=== PATIENT | female | born 1990 | race African-American/Black ===

== ENCOUNTER 2018-03-16 17:10 | Emergency (ER) | payer OTHER ==
[2018-03-16 17:23] VITALS: BP 102/80; PULSE 89; TEMP 98.5; BMI 32.5
--- NOTE | 2018-03-16 18:03 | PDOC ---
History of Present Illness <Jazmine Mcghee - Last Filed: 03/16/18 18:57> - History of Present Illness Initial Comments: 27yo F with no significant PMH complaining of eye pain x 8 days. Patient reports watery, erythematous eyes, initially worse on the right but now worse on the left. She describes a gritty sensation in her eyes, but denies double vision, fever, or chills. Patient reports being around her son and sister who presented with the same symptoms before hers occurred. Patient saw primary care provider last Wednesday and was given neomycin/polymyxin/dexamethasone eye drops which provided her no relief. She presents today with worsening symptoms. 03/16/18 17:59 <Mary Domínguez - Last Filed: 03/20/18 14:27> - General History Source: Patient <Shahriar Lee - Last Filed: 03/21/18 17:59> - General Chief Complaint: Eye Problem Stated Complaint: PINK EYE Time Seen by Provider: 03/16/18 17:12 Attending Attestation - HPI HPI: 03/16/18 18:23 The patient is a 27-year-old female with no reported past medical history presents to the emergency department with eye irritation. The patient presents with b/l eye discomfort for the past 8 days, initially presented to the R. eye, now slowly progressing to the L. eye The patient reports following up with PCP, who prescribe neomycin, reports being compliant with the medication, without relief. The patient reports associated symptoms of mild blurry vision and the sensation of somethings in the eye denies diplopia, fevers or chills. The patient reports sick contact with son and sister; they were diagnosed with conjunctivitis. Allergies: NKDA Social history: The patient denies the use of cigarettes. Denies the use of alcohol or recreational drugs. PCP: Syed Espinosa. (Attending medicine/Internal medicine, ) - Physicial Exam PE: 03/16/18 18:57 General: Awake, alert, fully oriented. In no acute distress. Head: Normocephalic, atraumatic. Eyes: eyes erythematous and injected b/l, PERRL, EOMI, sclera anicteric ENT: Moist mucous membranes. Oropharynx is clear. <Jazmine Mcghee - Last Filed: 03/16/18 18:57> - Resident Resident Name: Mary Domínguez - ED Attending Attestation I have performed the following: I have examined & evaluated the patient, The case was reviewed & discussed with the resident, I agree w/resident's findings & plan, Exceptions are as noted - Medical Decision Making The history and PE suggestive of viral conjunctivitis , much improved. At this point we suggested to stop the eye drops, to avoid contact with kids and women Follow up with ophtalmologist 03/21/18 17:54 <Shahriar Lee - Last Filed: 03/21/18 17:59> Past History <Jazmine Mcghee - Last Filed: 03/16/18 18:57> - Past Medical History COPD: No Thyroid Disease: No - Suicide/Smoking/Psychosocial Hx Smoking History: Never smoked Have you smoked in the past 12 months: No Information on smoking cessation initiated: No Hx Alcohol Use: No Drug/Substance Use Hx: No Substance Use Type: None <Mary Domínguez - Last Filed: 03/20/18 14:27> <Shahriar Lee - Last Filed: 03/21/18 17:59> - Past Medical History Allergies/Adverse Reactions: Allergies Allergy/AdvReac Type Severity Reaction Status Date / Time No Known Allergies Allergy Verified 03/16/18 17:11 Home Medications: Ambulatory Orders Neomycin/Polymyxin B/Dexametha [Wshgwr-Zfwrk-Upvayrs Eye Ointm] 2 drop OP BID Review of Systems - Review of Systems Comments:: Constitutional: no fever, no chills Cardiovascular: no chest pain Respiratory: no cough, no shortness of breath Gastrointestinal: no abdominal pain Genitourinary: no dysuria, no frequency Musculoskeletal: no myalgia, no arthralgia Skin: no rash, no itching Neurologic: no headache, no dizziness <Mary Domínguez - Last Filed: 03/20/18 14:27> *Physical Exam - Vital Signs Last Vital Signs Temp Pulse Resp BP Pulse Ox 98.5 F 89 20 102/80 100 03/16/18 17:10 03/16/18 17:10 03/16/18 17:10 03/16/18 17:10 03/16/18 17:10 <Jazmine Mcghee Last Filed: 03/16/18 18:57> - Vital Signs Last Vital Signs Temp Pulse Resp BP Pulse Ox 98.5 F 89 20 102/80 100 03/16/18 17:10 03/16/18 17:10 03/16/18 17:10 03/16/18 17:10 03/16/18 17:10 - Physical Exam Comments: General: Awake, alert, and fully oriented, in no acute distress Head: no signs of trauma Eyes: eyes erythematous and injected b/l, PERRL, EOMI, sclera anicteric ENT: moist mucus membranes, Neck: Normal ROM, supple, no lymphadenopathy, JVD, or masses Lungs: Lungs clear, Normal breath sounds Cardio: Regular rhythm, S1 and S2 present Abdomen: Soft, nontender Extremities: Normal range of motion SKIN: Warm, Dry, normal turgor, no rashes or lesions noted Neurologic: Cranial nerves II through XII grossly intact. Normal speech <Mary Domínguez - Last Filed: 03/20/18 14:27> - Vital Signs Last Vital Signs Temp Pulse Resp BP Pulse Ox 98.5 F 89 20 102/80 100 03/16/18 17:10 03/16/18 17:10 03/16/18 17:10 03/16/18 17:10 03/16/18 17:10 <Shahriar Lee S - Last Filed: 03/21/18 17:59> Medical Decision Making - Medical Decision Making 27yo F with eye complaint. History and exam consistent with viral conjunctivitis. Exposed to sick contacts. No pus or discharge, no herpetic lesions noted. Did not appreciate any abrasions on fluorescein exam. Instructed patient about supportive care including warm compresses. Referral to auto brake mechanic if her symptoms do not improve by Wednesday. Patient voiced understanding regarding plan. 03/16/18 19:24 <Mary Domínguez - Last Filed: 03/20/18 14:27> *DC/Admit/Observation/Transfer <Jazmine Mcghee - Last Filed: 03/16/18 18:57> <Mary Domínguez - Last Filed: 03/20/18 14:27> <Shahriar Lee S - Last Filed: 03/21/18 17:59> Diagnosis at time of Disposition: [place] eye disease of both eyes - Discharge Dispostion Disposition: HOME Condition at time of disposition: Improved - Referrals Referrals: Sam Wade MD [Staff Physician] - - Patient Instructions Printed Discharge Instructions: DI for Conjunctivitis Additional Instructions: You were seen in the emergency department for eye pain. Your history is consistent with viral conjunctivits. We performed a fluorescein exam and did not find any abrasions on your eye. Use warm compresses for comfort. Practice good hand hygiene and avoid exposure to children and women. We are referring to an auto brake mechanic, Dr. Wade. If you do not get better by Wednesday, call and make an appointment. Return to the emergency department if you experience: Any visual changes Severe pain Worsening symptoms Symptoms not improving or any other concerning symptoms - Post Discharge Activity Forms/Work/School Notes: Back to Work
[2018-03-16] MEDS ORDERED: TETRACAINE 0.5% OPHTH SOLN 2 ML BOTTLE OU ONE (18:14)
[2018-03-16] MEDS ORDERED: FLUORESCEIN NA 1 EA STRIP OU ONE (18:14)
[2018-03-16] MEDS ORDERED: TETRACAINE 0.5% OPHTH SOLN 2 ML BOTTLE ONE (18:20)
[2018-03-16] MEDS ORDERED: FLUORESCEIN NA 1 EA STRIP ONE (18:20)
== END 2018-03-16 18:55 | disposition home or self-care (01) ==
LOC: FER 17:10
DX: H10.029 Other mucopurulent conjunctivitis, unspecified eye (principal)
CPT/HCPCS: 99281-25

== ENCOUNTER 2018-09-22 18:34 | Emergency (ER) | payer OTHER ==
[2018-09-22 18:48] VITALS: BP 125/93; PULSE 87; TEMP 98.5; BMI 31.0
[2018-09-22] MEDS ORDERED: IBUPROFEN 600 MG TABLET (FP) PO ONE ×2 (18:56→18:57)
--- NOTE | 2018-09-22 19:00 | PDOC ---
History of Present Illness - General History Source: Patient Exam Limitations: No Limitations <ElenoMari dailey - Last Filed: 09/22/18 19:01> - History of Present Illness Initial Comments: This patient is a 28 year old female with no pertinent PMHx, who presents with 3 days of non-productive cough, sore throat, rhinorrhea. Patient states she has been taking mucinex, has not taken any other medication. She denies fever, chills, myalgias, nausea, vomiting, diarrhea, shortness of breath Allergies: NKDA Social history: The patient denies the use of cigarettes. Denies the use of alcohol or recreational drugs. PCP: Syed Espinosa. (Attending medicine/Internal medicine, ) 09/22/18 19:05 <Ivett Gonzalez - Last Filed: 09/22/18 19:06> - General Chief Complaint: Sore Throat Stated Complaint: SORE THROAT Past History - Past Medical History COPD: No Thyroid Disease: No - Suicide/Smoking/Psychosocial Hx Smoking History: Never smoked Have you smoked in the past 12 months: No Information on smoking cessation initiated: No Hx Alcohol Use: No Drug/Substance Use Hx: No Substance Use Type: None <WandaMari - Last Filed: 09/22/18 19:01> <Ivett Gonzalez - Last Filed: 09/22/18 19:06> - Past Medical History Allergies/Adverse Reactions: Allergies Allergy/AdvReac Type Severity Reaction Status Date / Time No Known Allergies Allergy Verified 09/22/18 18:38 Home Medications: Ambulatory Orders Ibuprofen [Motrin -] 600 mg PO TID PRN #90 tablet MDD 3 09/22/18 Review of Systems - Review of Systems Comments:: GENERAL/CONSTITUTIONAL: No fever or chills. No weakness. HEAD, EYES, EARS, NOSE AND THROAT: No change in vision. No ear pain or discharge.+sore throat.+rhinnorhea CARDIOVASCULAR: No chest pain or shortness of breath. RESPIRATORY:+cough, no wheezing, or hemoptysis. GASTROINTESTINAL: No nausea, vomiting, diarrhea or constipation. GENITOURINARY: No dysuria, frequency, or change in urination. MUSCULOSKELETAL: No joint or muscle swelling or pain. No neck or back pain. SKIN: No rash NEUROLOGIC: No headache, vertigo, loss of consciousness, or change in strength/ sensation. ENDOCRINE: No increased thirst. No abnormal weight change. HEMATOLOGIC/LYMPHATIC: No anemia, easy bleeding, or history of blood clots. ALLERGIC/IMMUNOLOGIC: No hives or skin allergy. 09/22/18 19:05 <Ivett Gonzalez - Last Filed: 09/22/18 19:06> *Physical Exam - Vital Signs Last Vital Signs Temp Pulse Resp BP Pulse Ox 98.5 F 87 16 125/93 98 09/22/18 18:35 09/22/18 18:35 09/22/18 18:35 09/22/18 18:35 09/22/18 18:35 - Physical Exam Comments: 09/22/18 18:56 awake alert clear rhinorrhea. right eye with conj injection. throat mild pharynx erythema. no exudate on tonsils. no tonsillar hypertrophy. uvula midline. lungs clear bilaterally heart rrr no mrg abd soft nt nd. skin warm and dry no rash. 09/22/18 19:01 <Mari Muñoz - Last Filed: 09/22/18 19:01> - Vital Signs Last Vital Signs Temp Pulse Resp BP Pulse Ox 98.5 F 87 16 125/93 98 09/22/18 18:35 09/22/18 18:35 09/22/18 18:35 09/22/18 18:35 09/22/18 18:35 <Ivett Gonzalez - Last Filed: 09/22/18 19:06> Moderate Sedation - Procedure Monitoring Vital Signs: Procedure Monitoring Vital Signs Temperature 98.5 F 09/22/18 18:35 Pulse Rate 87 09/22/18 18:35 Respiratory Rate 16 09/22/18 18:35 Blood Pressure 125/93 09/22/18 18:35 O2 Sat by Pulse Oximetry (%) 98 09/22/18 18:35 <Mari Muñoz - Last Filed: 09/22/18 19:01> - Procedure Monitoring Vital Signs: Procedure Monitoring Vital Signs Temperature 98.5 F 09/22/18 18:35 Pulse Rate 87 09/22/18 18:35 Respiratory Rate 16 09/22/18 18:35 Blood Pressure 125/93 09/22/18 18:35 O2 Sat by Pulse Oximetry (%) 98 09/22/18 18:35 <Ivett Gonzalez - Last Filed: 09/22/18 19:06> ED Treatment Course - Medications Given in the ED: ED Medications Discontinued Medications Generic Name Dose Route Start Last Admin Trade Name Art PRN Reason Stop Dose Admin Ibuprofen 600 mg 09/22/18 18:56 09/22/18 19:00 Motrin - PO 09/22/18 18:57 600 mg ONCE ONE Administration <Ivett Gonzalez - Last Filed: 09/22/18 19:06> Medical Decision Making - Medical Decision Making 09/22/18 18:57 28 yo F wtih sore throat cough, no body aches or fever. runny nose. normal throat exam mild erythema. 2 young kids at home, but no sick contacts. will send rapid strept. chani paniagua with viral uri sxs. motrin for pain. <Mari Muñoz - Last Filed: 09/22/18 19:01> *DC/Admit/Observation/Transfer <Mari Muñoz - Last Filed: 09/22/18 19:01> - Attestations Scribe Attestion: 09/22/18 19:06 Documentation prepared by Ivett Gonzalez, acting as medical policy specialist for Mari Muñoz MD. <Ivett Gonzalez - Last Filed: 09/22/18 19:06> Diagnosis at time of Disposition: Viral pharyngitis, Viral URI - Discharge Dispostion Condition at time of disposition: Improved - Prescriptions Prescriptions: Ibuprofen [Motrin -] 600 mg PO TID PRN #90 tablet MDD 3 PRN Reason: Pain - Patient Instructions Printed Discharge Instructions: Common Cold Additional Instructions: you have a viral infection of the throat and upper respiratory tract. you can take motrin 600 mg every 8 hrs as needed for pain. return for shortness of breath. vomiting or any concerns. you should follow up with your primary doctor. call to schedule.
== END 2018-09-22 19:46 | disposition home or self-care (01) ==
LOC: FER 18:34
DX: J02.8 Acute pharyngitis due to other specified organisms (principal); B97.89 Other viral agents as the cause of diseases classified elsewhere; J06.9 Acute upper respiratory infection, unspecified
CPT/HCPCS: 87070; 87880; 99281-25